=== PATIENT | male | born 1995 | race African-American/Black ===

== ENCOUNTER 2023-09-22 20:54 | Emergency (ER) | payer SELFPAY ==
[2023-09-22 20:58] VITALS: BP 130/60; PULSE 86; RESP 17; TEMP 98.1; BMI 24.4
[2023-09-22] MEDS ORDERED: LIDOCAINE 4% PATCH TP ONE (21:58)
[2023-09-22] MEDS ORDERED: LIDOCAINE PATCH REMOVAL MC SCH (22:00)
[2023-09-22] MEDS: LIDOCAINE 4% PATCH TP ONE (22:01)
[2023-09-22] MEDS ORDERED: ACETAMINOPHEN 500 MG TABLET (FP) ONE (22:13)
[2023-09-22] MEDS ORDERED: IBUPROFEN 400 MG TABLET (FP) PO ONE (22:13)
[2023-09-22] MEDS: IBUPROFEN 400 MG TABLET (FP) PO ONE (22:15)
[2023-09-22] MEDS: ACETAMINOPHEN 500 MG TABLET (FP) PO ONE (22:16)
== END 2023-09-22 22:58 | disposition home or self-care (01) ==
LOC: JERFT 20:54
DX: S93.402A Sprain of unspecified ligament of left ankle, initial encounter (principal); V01.90XA Pedestrian on foot injured in collision with pedal cycle, unspecified whether traffic or nontraffic accident, initial encounter
CPT/HCPCS: 73610-TC-LT-FY; 73630-TC-LT; 99283-25